=== PATIENT | female | born 1945 | race African-American/Black ===

== ENCOUNTER 2017-12-03 07:10 | Day surgery (SDC) | payer OTHER ==
[2017-11-29 15:07] VITALS: BMI 30.6
[2017-12-03] MEDS ORDERED: BUPIVACAINE HCL/PF 2.5 MG/ML - 30 ML VIAL IJ ONE (08:44)
[2017-12-03] MEDS ORDERED: EPINEPHrine 1:1,000 1 MG/1 ML - 30ML VIAL (INJECTION) ONE (08:52)
[2017-12-03] MEDS ORDERED: MIDAZOLAM HCL 2 MG/2 ML SINGLE DOSE VIAL ONE (09:08)
[2017-12-03] MEDS ORDERED: DEXAMETHASONE SOD PHOSPHATE 4 MG/1 ML VIAL ONE (09:08)
[2017-12-03] MEDS ORDERED: ONDANSETRON 4 MG/2 ML VIAL ONE (09:08)
[2017-12-03] MEDS ORDERED: PROPOFOL 20 ML ONE (09:19)
[2017-12-03] MEDS ORDERED: LIDOCAINE HCL/PF 2% SDV 5ML VIAL ONE (09:24)
[2017-12-03] MEDS ORDERED: BUPIVACAINE HCL/PF 0.25% (2.5MG/ML) 10 ML VIAL IJ ONE (10:02)
[2017-12-03] MEDS ORDERED: ONDANSETRON 4 MG/2 ML VIAL IVPUSH PRN (10:26)
[2017-12-03] MEDS ORDERED: oxyCODONE HCL 5 MG TABLET PO PRN ×2 (10:26)
[2017-12-03] MEDS ORDERED: LACTATED RINGERS SOLUTION 1,000 ML IV SCH (10:30)
[2017-12-03 10:53] VITALS: TEMP 97.8
[2017-12-03] MEDS ORDERED: oxyCODONE HCL 5 MG TABLET ONE (11:38)
[2017-12-03 12:07] VITALS: PULSE 89
[2017-12-03 12:26] VITALS: BP 145/88
--- NOTE | 2017-12-06 00:02 | OP ---
DATE OF OPERATION: 12/03/2017 SURGEON: Felipe Santana M.D. OFFSET PROOF PRESS OPERATOR: Sonia Dillon PREOPERATIVE DIAGNOSIS: 1. Left knee medial lateral meniscal tear. 2. Left knee cartilage injury. 3. Left knee synovitis. POSTOPERATIVE DIAGNOSIS: 1. Left knee medial lateral meniscal tear. 2. Left knee cartilage injury. 3. Left knee synovitis. PROCEDURE: 1. Left knee arthroscopy, partial meniscectomy lateral meniscus. CPT code 01016. 2. Left knee arthroscopy with chondroplasty and abrasion plasty. CPT code 84855. 3. Left knee arthroscopy with synovectomy. CPT code 44698. FINDINGS: 1. Medial meniscus bucket handle tear from mid body to posterior horn. 2. Lateral meniscus posterior horn tear. 3. Synovitis patellofemoral medial lateral notch area. 4. Diffuse grade 1 to 2 cartilage injury medial tibial plateau. 5. Central grade 2 to 3 cartilage injury medial femoral condyle. 6. ACL, PCL intact. 7. Diffuse grade 1-2 cartilage injury lateral joint. 8. Central grade 2-4 cartilage injury patellofemoral trochlea with patella. PROCEDURE: Informed consent was obtained. The patient came to the operating room, where the lower extremity was prepped and draped in a sterile fashion. A tourniquet was placed on the upper thigh, but not inflated. Using standard arthroscopic technique, a lateral incision and portal was made to allow for introduction of the camera into the suprapatellar bursa. This was then taken to the medial joint line, where under direct visualization, a medial incision and portal was made. Excessive synovium noted in the medial, lateral and patellofemoral and notch area was removed by an upbiter, shaver and Bovie cautery. This was found to bring in inflammatory tissue into the joint surface, a source of pain and dysfunction. Probing of the medial and lateral meniscus found tears, as described in the findings. These were removed with the upbiter and shaver and taken back to a stable rim. Grade 2 to 3 degenerative changes were treated with a chondroplasty, removing all flaking surfaces with low-setting Bovie along the periphery to prevent further flaking. Grade 4 changes, as noted, were treated with an abrasoplasty, creating a bleeding surface at the bone/cartilage interface. Aggressive debridement with shaver/julia created bleeding surface. Mirco fracture also done when indicated in findings All areas of the knee were once again reexamined. The knee was then drained and a single suture was placed in all portals. A sterile dressing was placed and the patient was transferred to the recovery room without complication. FELIPE SANTANA M.D. [id number]
--- NOTE | 2017-12-06 17:41 | PATH ---
Surgical Pathology Report Patient Name: KANA HUI [facility]. Rec. #: [id number] /Age/Gender: 1945 (Age: 72) / F Account: [id number] Location: [facility] AMBULATORY Taken: 12/03/2017 Received: 12/03/2017 Reported: 12/06/2017 Physicians: Felipe Cardenas M.D. Specimen(s) Received LEFT KNEE SHAVING Clinical History Left knee internal derangement Final Diagnosis KNEE SHAVINGS, LEFT, ARTHROSCOPY: FRAGMENTS OF CARTILAGE, DENSE FIBROCONNECTIVE TISSUE, ADIPOSE TISSUE, AND SYNOVIUM. Electronically Signed Maya Suarez M.D. Gross Description Received in formalin, labeled "left knee shavings," is a 4.0 x 2.5 x 0.3 cm. aggregate of rodriguez-yellow soft tissue fragments. A hotel services sales representative portion is submitted in one cassette. /12/03/2017 saudi/12/03/2017
== END 2017-12-03 12:20 | disposition home or self-care (01) ==
LOC: FASU 07:10
PROVIDERS: ATTEND Orthopaedic Surgery
PROC: 0SBD4ZZ Excision of Left Knee Joint, Percutaneous Endoscopic Approach (ICD-10-PCS; 2017-12-03)
PROC: 0SBD4ZZ Excision of Left Knee Joint, Percutaneous Endoscopic Approach (ICD-10-PCS; principal; 2017-12-03 09:34)
DX: S83.242A Other tear of medial meniscus, current injury, left knee, initial encounter (principal); S83.282A Other tear of lateral meniscus, current injury, left knee, initial encounter; S83.8X2A Sprain of other specified parts of left knee, initial encounter; M65.862 Other synovitis and tenosynovitis, left lower leg; X58.XXXA Exposure to other specified factors, initial encounter; Y93.9 Activity, unspecified; Y92.9 Unspecified place or not applicable
CPT/HCPCS: 82962; 88304-TC; 94760

== ENCOUNTER 2018-03-31 08:33 | Day surgery (SDC) | payer OTHER ==
[2018-03-30 11:56] VITALS: BMI 30.6
[2018-03-31] MEDS ORDERED: ONDANSETRON 4 MG/2 ML VIAL IVPUSH PRN (08:49)
[2018-03-31] MEDS ORDERED: PROPOFOL 20 ML ONE (08:51)
[2018-03-31] MEDS ORDERED: MIDAZOLAM HCL 2 MG/2 ML SINGLE DOSE VIAL ONE (08:52)
[2018-03-31] MEDS ORDERED: DEXAMETHASONE SOD PHOSPHATE 4 MG/1 ML VIAL ONE (08:54)
[2018-03-31] MEDS ORDERED: LIDOCAINE HCL/PF 2% SDV 5ML VIAL ONE (08:54)
[2018-03-31] MEDS ORDERED: LACTATED RINGERS SOLUTION 1,000 ML IV SCH (09:00)
[2018-03-31] MEDS ORDERED: NEOSTIGMINE METHYLSULFATE 0.5 MG/ML - 10 ML MDV ONE (09:10)
[2018-03-31] MEDS ORDERED: GLYCOPYRROLATE 0.2 MG/1 ML VIAL ONE (09:11)
[2018-03-31] MEDS ORDERED: IBUPROFEN 400 MG TABLET (FP) PO PRN (09:48)
[2018-03-31] MEDS ORDERED: ACETAMINOPHEN 325 MG TABLET (FP) PO PRN (09:48)
--- NOTE | 2018-03-31 09:51 | HP ---
History & Physical Update - History History: No Change - Physical Physical: No Change - Assessment Assessment: No Change - Plan Plan: No Change (No change in HP from 03/26/18)
[2018-03-31] MEDS ORDERED: ceFAZolin SODIUM 1 GM VIAL ONE (10:32)
--- NOTE | 2018-03-31 11:22 | OP ---
Operative Note - Note: Operative Date: 03/31/18 Pre-Operative Diagnosis: Leiomyomatous Uterus. submucosal myoma. endometrial polyps Operation: Hysteroscopic myomectomy. Hysteroscopic Lysis of adhesions. dilation and curretage Findings: endometrial adhesions endometrial polyps endometrial myomas Post-Operative Diagnosis: Same as Pre-op Surgeon: Debra Du Anesthesia: General Estimated Blood Loss (mls): 5 Operative Report Dictated: Yes
--- NOTE | 2018-03-31 12:10 | OP ---
DATE OF OPERATION: 03/31/2018 PREOPERATIVE DIAGNOSIS: Leiomyomatous uterus, endometrial hyperplasia, endometrial polyps, and submucosal myoma. SURGEON: Debra Du MD ANESTHESIA: General. ANESTHESIOLOGIST: PROCEDURE: Patient was taken to the operating room, placed in dorsal lithotomy position, prepped and draped in the usual sterile fashion. A time-out was performed, and according to hospital regulations, speculum was placed in the vagina, anterior lip of the cervix was grasped with a single-tooth tenaculum. Cervix was then dilated to accommodate the operative hysteroscope. Operative hysteroscope was inserted, and multiple myomas and polyps were seen in the endometrial cavity. This was after some lysis of adhesions were performed to enter the endometrial cavity properly. Lysis of adhesions was done, and then, cautery of the endometrial polyps and myomas was done. Polyps were then removed, the endometrial polyps, with the polyp forceps. Suction dilatation and curettage was then performed followed by a repeat procedure of cervical myomas were seen, and cautery and cutting of the cervical myomas was then done. Hemostasis was achieved using cautery, and suction dilatation and curettage was then done. Specimens were submitted to Pathology. All instruments were then removed. Estimated blood loss was 5 mL. Patient tolerated the procedure well and was taken to recovery room in stable condition. Pack count was noted to be normal. DEBRA DU M.D. [id number]
[2018-03-31 12:41] VITALS: TEMP 97.9
[2018-03-31 16:10] VITALS: BP 140/79; PULSE 96
--- NOTE | 2018-04-01 17:25 | PATH ---
Surgical Pathology Report Patient Name: KANA HUI [facility]. Rec. #: [id number] /Age/Gender: 1945 (Age: 73) / F Account: [id number] Location: [facility] SURGICAL Taken: 03/31/2018 Received: 03/31/2018 Reported: 04/01/2018 Physicians: Debra Du M.D. Specimen(s) Received A: ENDOMETRIAL CURETTINGS B: ENDOMETRIAL POLYP, FIBROIDS Clinical History Menorrhagia, submucosal myoma Final Diagnosis A. ENDOMETRIAL CURETTINGS: FRAGMENTS OF ENDOMETRIAL POLYP. SEPARATE ENDOCERVICAL TISSUE WITH CYSTIC CHANGE (NABOTHIAN CYSTS), AND UNREMARKABLE SUPERFICIAL SQUAMOUS EPITHELIUM. B. ENDOMETRIAL POLYPS, FIBROIDS, EXCISION: FRAGMENTS OF ENDOMETRIAL AND ENDOCERVICAL POLYP. ATROPHIC ENDOMETRIUM AND FRAGMENTS OF SMOOTH MUSCLE BUNDLES. Electronically Signed Devin Lagunas M.D. Gross Description A. Received in formalin labeled "endometrial curettings," is a 1.4 x 0.8 x 0.3 cm aggregate of rodriguez soft tissue fragments. The formalin is filtered and the specimen is entirely submitted in one cassette. B. Received in formalin labeled "endometrial polyps/fibroid," is a less than 1 g, 2.0 x 1.5 x 0.3 cm aggregate of rodriguez, firm to rubbery tissue fragments. The formalin is filtered and the specimen is entirely submitted in one cassette. 03/31/2018 saudi03/31/2018
== END 2018-03-31 13:50 | disposition home or self-care (01) ==
LOC: JASU-SURG 08:33
PROVIDERS: ATTEND Obstetrics & Gynecology
PROC: 0UBC8ZX Excision of Cervix, Via Natural or Artificial Opening Endoscopic, Diagnostic (ICD-10-PCS; 2018-03-31)
PROC: 0UB98ZX Excision of Uterus, Via Natural or Artificial Opening Endoscopic, Diagnostic (ICD-10-PCS; 2018-03-31)
PROC: 0UDB8ZX Extraction of Endometrium, Via Natural or Artificial Opening Endoscopic, Diagnostic (ICD-10-PCS; 2018-03-31)
PROC: 0UN98ZZ Release Uterus, Via Natural or Artificial Opening Endoscopic (ICD-10-PCS; principal; 2018-03-31 10:00)
PROC: 0UB98ZZ Excision of Uterus, Via Natural or Artificial Opening Endoscopic (ICD-10-PCS; 2018-03-31 10:00)
DX: D25.0 Submucous leiomyoma of uterus (principal); N84.0 Polyp of corpus uteri; N85.6 Intrauterine synechiae; N84.1 Polyp of cervix uteri
CPT/HCPCS: 82962; 86850; 86900; 86901; 88305-TC; 94760

== ENCOUNTER 2018-12-23 08:28 | Day surgery (SDC) | payer OTHER | END 2018-12-23 14:10 | disposition home or self-care (01) | LOC: FASU 08:28 ==

== ENCOUNTER 2019-06-09 06:58 | Day surgery (SDC) | payer OTHER ==
[2019-06-07 15:17] VITALS: BMI 31.6
[2019-06-09] MEDS ORDERED: LIDOCAINE HCL 1%, 10 MG/ML (20ML VIAL) ONE (08:14)
[2019-06-09] MEDS ORDERED: BUPIVACAINE HCL/PF 0.5% (5MG/ML) 10 ML VIAL ONE (08:15)
[2019-06-09] MEDS ORDERED: PROPOFOL 20 ML ONE (08:46)
[2019-06-09] MEDS ORDERED: MIDAZOLAM HCL 2 MG/2 ML SINGLE DOSE VIAL ONE (08:46)
[2019-06-09] MEDS ORDERED: methylPREDNISolone ACET (DEPO) 40 MG/1 ML VIAL ONE (08:48)
[2019-06-09] MEDS ORDERED: ceFAZolin SODIUM 1 GM VIAL ONE (08:50)
[2019-06-09] MEDS ORDERED: ONDANSETRON 4 MG/2 ML VIAL ONE (09:07)
[2019-06-09 10:18] VITALS: BP 124/71; PULSE 75; TEMP 98
--- NOTE | 2019-06-09 13:30 | OP ---
DATE OF OPERATION: 06/09/2019 Done at [facility] SURGEON: Jacob Santana MD MEDIA SENIOR RECRUITER: , PA PREOPERATIVE DIAGNOSIS: Left carpal tunnel syndrome. POSTOPERATIVE DIAGNOSIS: Left carpal tunnel syndrome. PROCEDURE: Left carpal tunnel release. FINDINGS: carpal ligament, impingement upon median nerve. DESCRIPTION OF PROCEDURE: Under sterile conditions, the upper extremity was prepped and draped in a sterile fashion. Incision was made along the longitudinal portion of the carpal tunnel. A longitudinal incision was made along the proximal portion of the palm, following the palm crease. This was taken down to the transcarpal ligament, which was released initially with scalpel and then extended proximally and distally using blunt tenotomy scissors. The median nerve was identified and completely released from impingement by the transcarpal ligament. The wound was then irrigated with copious amounts of irrigation. Skin was closed with 5-0 nylon in single interrupted sutures. The PA listed above was present and assisted at surgery. Their presence was absolutely medically necessary for the completion of the procedure. They helped hold the arthroscopy, pass instruments (and implants when indicated) and the procedure could not have been completed without their assistance. JACOB SANTANA M.D. [id number]
== END 2019-06-09 11:25 | disposition home or self-care (01) ==
LOC: FASU 06:58
PROVIDERS: ATTEND Orthopaedic Surgery
PROC: 01N50ZZ Release Median Nerve, Open Approach (ICD-10-PCS; principal; 2019-06-09 09:04)
DX: G56.02 Carpal tunnel syndrome, left upper limb (principal)
CPT/HCPCS: 82962

== ENCOUNTER 2021-05-06 04:27 | Day surgery (SDC) | payer OTHER ==
[2021-05-02 13:35] VITALS: BMI 29.9
[2021-05-06] MEDS ORDERED: LIDOCAINE HCL/PF 1% SDV 5ML VIAL ONE (08:09)
[2021-05-06] MEDS ORDERED: DEXAMETHASONE SOD PHOSPHATE 10 MG/1 ML VIAL ONE (08:09)
[2021-05-06] MEDS ORDERED: BUPIVACAINE HCL/PF 0.5% (5MG/ML) 10 ML VIAL ONE (08:10)
[2021-05-06] MEDS ORDERED: IOHEXOL 180 MG/1 ML ML IJ ONE ×2 (09:50)
[2021-05-06] MEDS ORDERED: LIDOCAINE HCL 1%, 10 MG/ML (20ML VIAL) INF ONE ×2 (09:50)
[2021-05-06] MEDS ORDERED: DEXAMETHASONE SOD PHOSPHATE 10 MG/1 ML VIAL IM ONE (09:51)
[2021-05-06 10:50] VITALS: BP 139/61; PULSE 73; TEMP 97.7
== END 2021-05-06 10:45 | disposition home or self-care (01) ==
LOC: JASU-SURG 04:27
PROVIDERS: ATTEND Pain Medicine Pain Medicine
PROC: 3E0R33Z Introduction of Anti-inflammatory into Spinal Canal, Percutaneous Approach (ICD-10-PCS; 2021-05-06)
PROC: 3E0R3BZ Introduction of Anesthetic Agent into Spinal Canal, Percutaneous Approach (ICD-10-PCS; principal; 2021-05-06 09:15)
DX: M48.061 Spinal stenosis, lumbar region without neurogenic claudication (principal); M54.16 Radiculopathy, lumbar region
CPT/HCPCS: 76000-TC-FY; J1100

== ENCOUNTER 2021-11-19 13:16 | Emergency (ER) | payer OTHER ==
[2021-11-19 13:25] VITALS: BP 118/58; PULSE 75; TEMP 98.6; BMI 27.1
[2021-11-19] MEDS ORDERED: BEBTELOVIMAB (EUA) 175 MG/2 ML VIAL IVPUSH ONE (13:46)
== END 2021-11-19 16:08 | disposition home or self-care (01) ==
LOC: JCOVINFU 13:16 → JER 13:16 → JCOVINFU 16:08
DX: U07.1 COVID-19 (principal)
CPT/HCPCS: 99284-25; M0222; Q0222